=== PATIENT | female | born 1955 | race Caucasian/White ===

== ENCOUNTER 2018-01-06 07:30 | Outpatient (RCR) | payer OTHER, SELFPAY ==
--- NOTE | 2017-12-08 17:25 | HP.PTEVAL_ITS ---
Patient's Visit Information KAIA SALAS is a 62 year old F referred to Physical Therapy by DO SALTY Zelaya with a diagnosis of PAIN IN LEFT SHOULDER,CERVICALAGIA,CERVICAL RADICULOPATHY. Date of Evaluation: 12/08/17 Physical Therapist: Michel Molina PT, - Visit Plan Frequency: 3x /Week Duration: 4 Weeks Plan: CERVICAL POSTURAL EX,HEMA EX'S,MODALITIES -ICTX # X15 - Subjective Subjective: This 62 y/o female presents to physical therapy with cervical radiculopathy ,left shoulder pain. Patient has had cervical radiculopathy for about one year. Patient had incidous onset of left cervical pain . Symptoms located left UT /cervical with ocassionally paratrhesia/tingling in fingers.Symptoms worse with sitting,flexion,lifting. Symptoms better tens unit. Patient has ocassional PENA. Denies dizziness/nausea. Patient sleeping good at night.Patient recently had bunionectomy Sep 23 use knee walker. VOCATION: [employer]. SOCAIL: - Pain Left Neck Pain Intensity (Out of 10): 5 Pain Intensity Range: 10, N/A - Objective POSTURE: rounded shoulders head foward. PALPATION: unremarkable. NEURO: denies parathesia/tingling ,reflexes C5-6-7 2/3. AROM: WFL BUE. MMT: RTC 4/5, DELTOID 4/5. CERVICAL ROM: flexion,WFL retraction WFL ,lateral flexion / rotation min/mod loss,extension min loss - Special Tests C/S Radiculapathy - Left Upper limb tension test: Negative C/S Radiculapathy - Right Upper limb tension test: Negative C/S Radiculapathy - Left Spurlings: Negative C/S Radiculapathy - Right Spurlings: Negative C/S Radiculapathy - Left Cervical distraction: Negative C/S Radiculapathy - Right Cervical distraction: Negative C/S Radiculapathy - Left Relief test: Negative C/S Radiculapathy - Right Relief test: Negative Vertebral Artery Test: Negative Cervical Sitting: Protrusion - Mechanical Response: No effect Cervical Sitting: Protrusion - Symptoms During Testing: No effect Cervical Sitting: Protrusion - Symptoms After Testing: No effect Cervical Sitting: Retraction - Mechanical Response: No effect Cervical Sitting: Retraction - Symptoms During Testing: No effect Cervical Sitting: Retraction - Symptoms After Testing: No effect Cervical Sitting: Retraction-Extension - Mechanical Response: No effect Cerv Sitting: Retraction-Extension - Symptoms During Testing: No effect Cerv Sitting: Retraction-Extension - Symptoms After Testing: No effect Cervical Sitting: Sidebend Right - Mechanical Response: No effect Cervical Sitting: Sidebend Right - Symptoms During Testing: Increases Cervical Sitting: Sidebend Right - Symptoms After Testing: No worse Comments:: TIGHTNESS Cervical Sitting: Sidebend Left - Mechanical Response: No effect Cervical Sitting: Sidebend Left - Symptoms During Testing: Increases Cervical Sitting: Sidebend Left - Symptoms After Testing: No worse Cervical Sitting: Rotation Right - Mechanical Response: No effect Cervical Sitting: Rotation Right - Symptoms During Testing: No effect Cervical Sitting: Rotation Right - Symptoms After Testing: No effect Cervical Sitting: Rotation Left - Mechanical Response: No effect Cervical Sitting: Rotation Left - Symptoms During Testing: No effect Cervical Sitting: Rotation Left - Symptoms After Testing: No effect Cervical Sitting: Flexion - Mechanical Response: No effect Cervical Sitting: Flexion - Symptoms During Testing: No effect Cervical Sitting: Flexion - Symptoms After Testing: No effect - Goals Goal 1:: Independant with HEP Goal Time Frame: 4-6 Weeks Goal 2:: Independant with posture for ADL'S Goal Time Frame: 4-6 Weeks Goal 3:: Decrease cervical radiculopathy by 50% or greater to improve function with ADL'S Goal Time Frame: 4-6 Weeks Goal 4:: Patient to be dc/ to prophalaxis Goal Time Frame: 4-6 Weeks Goal 5:: Patient to perform ADL'S and housework tasks with min limiations Goal Time Frame: 4-6 Weeks - Rehabilitation Potential Physical Therapy Diagnosis: This patient has possible derrangement below elbow thus benifit from skilled PT Rehabilitation Potential: Good - Anticipated Interventions Patient/Client Instruction: Educate patient on: Condition, Plan of Care For the Purpose of:: To decrease pain, To increase ROM, To improve muscle performance and motor function, To improve ability to perform ADL's, To increase tolerance to activity/condition/position, To improve ability of physical actions for home/community/work/leisure, To improve health of tissue, To decrease soft tissue restriction, To increase flexibility/ROM, To improve ability to perform tasks related to life management Therapeutic Exercise to Include: Strength training, Postural training, Flexibilty training, Hema Exercises For the Purpose of:: To decrease pain, To increase ROM, To improve muscle performance and motor function, To improve ability to perform ADL's, To increase tolerance to activity/condition/position, To improve performance and independence with ADL's, To improve ability of physical actions for home/ community/work/leisure, To improve health of tissue, To decrease soft tissue restriction, To increase flexibility/ROM, To improve ability to perform tasks related to life management Manual Therapy Techniques to Include: Mobilization Comment: CERVICAL TRACTION MANUAL For the Purpose of:: To decrease pain, To increase ROM, To improve nutrient delivery to tissue, To increase oxygenation perfusion, To improve health of tissue, To decrease soft tissue restriction, To increase flexibility/ROM IF ES: Yes Cryotherapy (ice pack, ice massage): Yes Thermo therapy (hot pack): Yes Ultrasound (thermal/non thermal): Yes Intermittent cervical traction: Yes - # For the Purpose of:: To decrease pain, To increase ROM, To improve muscle performance and motor function, To improve health of tissue, To decrease soft tissue restriction, To increase flexibility/ROM Thank you for the opportunity to evaluate your patient. For Medicare and Medicare HMO plans, please review the plan of care and approve it. It will need to be FAXED BACK to us at [phone] for Medicare purposes. Please let me know if there are questions or concerns regarding this plan of care. Physician Signature: Date:
--- NOTE | 2018-01-06 07:54 | HP.PTDCSUM_ITS ---
HP - PT D/C Summary It has been my pleasure to treat KAIA SALAS under orders from Bro Muse DO, for the diagnosis of PAIN IN LEFT SHOULDER,CERVICALAGIA, CERVICAL RADICULOPATHY for a total of 12 visit(s). Discharge Date: 01/06/18 Please see the following information for a summary of their discharge status. - Subjective Subjective: Doing well ..ocassionally right. Independant with ADLS' and housework tasks - Pain Left Neck Pain Intensity (Out of 10): 0 - Overall Improvement % Improvement: 80 - Objective Objective/Function: POSTURE: mild foward posture. PALAPTION: tender UT. AROM: BUE WFL. MMT: 4/5 grossly. CERVICAL ROM: flexion min loss,extension min loss, rotatation mod loss - Goals Goal 1:: Independant with HEP Goal Progress: Goal Met Goal 2:: Independant with posture for ADL'S Goal Progress: Goal Met Goal 3:: Decrease cervical radiculopathy by 50% or greater to improve function with ADL'S Goal Progress: Goal Met Goal 4:: Patient to be dc/ to prophalaxis Goal Progress: Goal Met Goal 5:: Patient to perform ADL'S and housework tasks with min limiations Goal Progress: Goal Met - Plan Plan: D/C to HEP - D/C Information Discharge Comments: HEP If there are questions or concerns regarding this patient's physical therapy, please feel free to call me at [phone]. Thank you for the referral of this patient. Sincerely, Michel Molina, PT,
== END 2018-01-06 12:51 | disposition home or self-care (01) ==
LOC: PT 07:30
PROVIDERS: Visit Provider Orthopaedic Surgery
DX: M25.512 Pain in left shoulder (principal); M54.2 Cervicalgia; M54.12 Radiculopathy, cervical region
CPT/HCPCS: 97012; 97035; 97110; 97162; 97530